=== PATIENT | female | born 1960 ===

== ENCOUNTER 2025-04-14 10:59 | Outpatient (CLI) | payer MEDICAID | END 2025-04-14 17:00 | disposition home or self-care (01) | LOC: Rad HDHVI 10:59 | PROVIDERS: ATTEND Internal Medicine Cardiovascular Disease | DX: I10 Essential (primary) hypertension (principal); E78.5 Hyperlipidemia, unspecified | CPT/HCPCS: 93306 ==

== ENCOUNTER → 2025-04-25 | Outpatient (CLI) | payer MEDICAID ==
[~2025-04-25] VITALS: Ht 152.4 cm; Wt 98.0 kg
--- NOTE | 2025-05-02 18:31 | DVHSR ---
APPROVED REPORT Exam: Nuclear Stress Test Indication: Screening for CAD Ht: 5 ft 0 in Wt: 216 lbs BSA: 1.93 m2 HR: 67 bpm BP: 118/73 mmHg BMI: 42.18 Rhythm: NSR Medical History Medical History: HTN, Hypercholesterolemia, Abnormal EKG, Endometrial cancer, Diabetes Medications: Benazepril, Snelling 3, Atorvastatin, Amlodipine, Levothyroxine, Vit D3 Stress Test Details Stress Test: Exercise stress testing was performed using a Hakeem protocol. HR Resting HR: 67 bpmMax Heart Rate (APMHR): 156.181992 bpm Max HR Achieved: 164 bpmTarget HR (85% APMHR): 132.468792 bpm % of APMHR: 105.13 Recovery HR: 93 bpm HR response to stress: Accelerated BP Resting BP: 118/73 mmHg Max BP: 159/79 mmHg Recovery BP: 126/77 mmHg BP response to stress: Normal blood pressure response to stress. ECG Resting ECG: Sinus Rhythm Stress ECG: Sinus Tachycardia Arrhythmia: PACs, PVCs Recovery ECG: Sinus Rhythm Clinical Reason for Termination: Max HR achieved, Fatigue Stress Symptoms: None Exercise duration: 3 min 00 sec Exercise capacity: 4.6 METs Stress ECG Conclusion NON ISCHEMIC CLINICAL RESPONSE NON ISCHEMIC ECG RESPONSE CARDIOLITE PERFUSION SCAN WITH NO REVERSIBLE DEFECTS EF >55% LESS THAN 10% LIKELIHOOD FOR STRESS INDUCED ISCHEMIA NM EXAM: Myocardial Perfusion REST/STRESS Imaging Protocol: Rest Tc-99m/Stress Tc-99m 1 day Resting Data Rest SPECT myocardial perfusion imaging was performed in supine position 30 minutes following the int ravenous injection of 11 mCi of Tc-99m Sestamibi. Time of rest injection: 950 Date: 04/25/2025 Time of rest imagin Date: 04/25/2025 Administration Route: IV Administration Site: Right AC Exercise Stress At peak stress, the patient was injected intravenously with 29.2 mCi of Tc-99m Sestamibi. Time of stress injection: 105 Date: 04/25/2025 Time of stress imagin Date: 04/25/2025 Administration Route: IV Administration Site: Right AC Heart Rate at time of stress injection: 162 bpm. Patient continued to exercise for 1 minute(s). Gated Stress SPECT was performed 15 minutes after stress injection. The images were gated to evaluate regional wall motion and calculate left ventricular ejection fracti on. Comments Cardiolite injection at 1 minute, 50 seconds into test. Nuclear Conclusion NON ISCHEMIC CLINICAL RESPONSE NON ISCHEMIC ECG RESPONSE CARDIOLITE PERFUSION SCAN WITH NO REVERSIBLE DEFECTS EF >55% LESS THAN 10% LIKELIHOOD FOR STRESS INDUCED ISCHEMIA
== END | disposition home or self-care (01) ==
LOC: Rad HDHVI 09:33
PROVIDERS: ATTEND Internal Medicine Cardiovascular Disease
DX: I49.1 Atrial premature depolarization (principal); I49.3 Ventricular premature depolarization; I11.9 Hypertensive heart disease without heart failure; C45.1 Mesothelioma of peritoneum; I25.2 Old myocardial infarction; E11.9 Type 2 diabetes mellitus without complications; E78.00 Pure hypercholesterolemia, unspecified; R94.31 Abnormal electrocardiogram [ECG] [EKG]; R00.0 Tachycardia, unspecified; Z13.6 Encounter for screening for cardiovascular disorders; Z85.42 Personal history of malignant neoplasm of other parts of uterus
CPT/HCPCS: 78452; 93017; A9500; 96374